=== PATIENT | female | born 2000 | race Caucasian/White ===

== ENCOUNTER 2019-09-14 13:22 | Emergency (ER) | payer OTHER ==
--- NOTE | 2019-09-14 13:36 | PDOC ---
History of Present Illness - General Chief Complaint: Pain Stated Complaint: RT LOWER ABD PAIN Time Seen by Provider: 09/14/19 13:30 - History of Present Illness Initial Comments: 09/14/19 13:56 Chief complaint: Abdominal pain HPI: Right pelvic pain for 4 days, similar in character and location right lower quadrant to pain from multiple prior ovarian cysts. One prior surgery at age 13 for ovarian cyst, right side, but patient is uncertain of the type of procedure performed. She began her menses yesterday. No missed menses. Not sexually active. Review of systems: Denies fever/chills, recent URI symptoms, sore throat, cough , chest pain, shortness of breath, nausea, vomiting, diarrhea, anorexia, hematemesis, melena, bloody stool, urinary tract symptoms including dysuria frequency urgency hesitancy or hematuria, constipation or diarrhea. Normal bowel movement yesterday Past medical history: Multiple ovarian cysts. No other GI or systemic disease. Takes only ibuprofen 400 mg for pain. Social history: College student, lives in dormitory, home [place] [address], denies tobacco drugs or alcohol. Family history: Reviewed and noncontributory including early coronary artery disease, gynecological disease, diabetes or other metabolic diseases, or cancer Physical exam: Alert and oriented mildly obese no acute distress cheerful and cooperative Afebrile, vital signs normal No pallor or icterus. PERRLA, ENT clear Neck supple without bruit mass or nodes Lungs clear with full breath sounds bilaterally. CV regular without murmur rub or gallop pulses full and symmetric no JVD or edema no bruits Abdomen nondistended, bowel sounds normal. Soft without mass organomegaly. Mild tenderness to deep palpation in the right pelvic area. No guarding or rebound. No tenderness in the mid abdomen or other quadrants. Skin clear, no rash, adequate turgor and wet mucous membranes Extremities no CCE Neurological intact Impression: Probable recurrent right ovarian cyst. Rule out . Less likely possibilities include appendicitis, right-sided diverticulitis, ectopic or torsion. Plan: CBC, chemistries, ultrasound. IV fluids and analgesics. Further evaluation and treatment depending on results. Past History - Past Medical History Allergies/Adverse Reactions: Allergies Allergy/AdvReac Type Severity Reaction Status Date / Time No Known Allergies Allergy Verified 09/14/19 13:23 Home Medications: Ambulatory Orders Ibuprofen 600 mg PO ONCE 09/14/19 NK [No Known Home Medication] 09/14/19 ED Treatment Course - LABORATORY CBC & Chemistry Diagram: 09/14/19 14:00 09/14/19 14:00 Medical Decision Making - Medical Decision Making 09/15/19 09:05 Patient's pain completely resolved with administration of Toradol White blood count 6.0. Remainder of CBC normal. Chemistries and urinalysis normal except for blood which is probably from menstruation. No white cells. No nitrites or leukocyte Estrace. Negative test. Sonogram negative. Most likely this is pelvic pain related to a small cyst with rupture or menstruation. No sign or symptoms of GI disease, appendicitis. To continue Motrin as needed, return to ER if pain worsens or further symptoms develop. Fully ambulatory in no pain at discharge with friend to follow-up as directed 09/15/19 09:07 09/15/19 09:08 Discharge - Discharge Information Problems reviewed: Yes Clinical Impression/Diagnosis: Ovarian cyst Qualifiers: Laterality: right Qualified Code(s): N83.201 - Unspecified ovarian cyst, right side Condition: Stable Disposition: HOME - Admission No - Follow up/Referral Referrals: Dena Us MD [Staff Physician] - 1 week - Patient Discharge Instructions Additional Instructions: Motrin 600 to 800 mg 3 times daily as needed for pain. This is 3 or 4 over-the- counter tablets/capsules. Return immediately to the ER if there is fever/chills, increased pain, nausea, vomiting, diarrhea, body aches, or other serious symptoms Otherwise follow-up with [facility] physician as directed. Although your sonogram was normal, the most likely cause of your pain is a small ovarian cyst that is leaking fluid. This pain should improve once you finish your menses. Your white blood count is normal, you have no fever, and there is no other sign of appendicitis, but this is still a remote possibility and you should return to the ER if there are further symptoms as described above. - Post Discharge Activity Work/Back to School Note: Back to School
[2019-09-14] MEDS ORDERED: SODIUM CHLORIDE 1,000 ML IV STA (13:48)
[2019-09-14 14:02] VITALS: BP 131/77; PULSE 104; TEMP 98.7; BMI 31.1
[2019-09-14] MEDS ORDERED: KETOROLAC TROMETHAMINE 30 MG/1 ML VIAL IVPUSH ONE (14:03)
[2019-09-14] MEDS ORDERED: KETOROLAC TROMETHAMINE 30 MG/1 ML VIAL ONE (14:05)
[2019-09-14 14:23] LABS: EPITHELIAL CELLS FEW /hpf
[2019-09-14 14:25] LABS: BILIRUBIN,TOTAL 0.5 mg/dl (0.2-1); CALCIUM 9.7 mg/dl (8.5-10); CREATININE 0.7 mg/dl (0.55-1.3); POTASSIUM 4.1 mmol/L (3.5-5.1); TOT PROT 7.3 g/dl (6.4-8.2)
[2019-09-14 14:50] LABS: BASO % 0.8 % (0-2.0); EOS % 0.7 % (0-4.5); HEMATOCRIT 36.4 % (32.4-45.2); HEMOGLOBIN 12.3 GM/dL (10.7-15.3); LYMPH % 28.4 % (8-40); MCH 28.2 pg (25.7-33.7); MCHC 33.6 g/dl (32.0-36.0); MEAN CELL VOLUME 83.9 fl (80-96); MEAN PLT VOLUME 7.5 fl (7.5-11.1); MONO % 8.8 % (3.8-10.2); NEUT % 61.3 % (42.8-82.8); PLATELET COUNT 282 K/MM3 (134-434); RBC 4.34 M/mm3 (3.60-5.2); RDW 13.4 % (11.6-15.6)
== END 2019-09-14 18:01 | disposition home or self-care (01) ==
LOC: FER 13:22 → EDBD 13:22 → FER 18:01
PROC: 3E0333Z Introduction of Anti-inflammatory into Peripheral Vein, Percutaneous Approach (ICD-10-PCS; principal; 2019-09-14)
PROC: 3E0337Z Introduction of Electrolytic and Water Balance Substance into Peripheral Vein, Percutaneous Approach (ICD-10-PCS; 2019-09-14)
DX: N83.201 Unspecified ovarian cyst, right side (principal)
CPT/HCPCS: 36415; 76856-TC; 80053; 81003; 81015; 84703; 85025; 99284-25; J7030